=== PATIENT | female | born 2000 | race Caucasian/White ===

== ENCOUNTER 2020-02-29 22:56 | Emergency (ER) | payer BC ==
[~2020-02-29] VITALS: Ht 154.9 cm; Wt 63.5 kg
--- NOTE | ~2020-02-29 | EMS ---
[facility] [address] [place] [address] EMS Patient Care Report Name: ELSIE JERNIGAN Room #: PRE M.R.#: [id number] Admission: Attend Phys: Discharge: Date of : 99 Report #: [id number] THIS REPORT FOR: //name// Report Transmitted: 02/29/2020 22:58 EMS Care Summary [place], [place]/[facility] Incident [id number] @ 02/29/2020 22:18 Incident Location [address] [place] [id number] Patient ELSIE JERNIGAN Female, 19 Years 2000 Patient Address Patient History Hypertension (HTN), Patient Allergies No known allergies, Patient Medications None Reported, Chief Complaint PAIN ALL OVER BODY Disposition Transported No Lights/[place] Dispatch Reason Breathing Problem Transported To [facility] Narrative RESPONDED TO BREATHING PROBLEMS AT APARTMENT. UPON ARRIVAL PT FOUND SITTING ON FLOOR LEANING OVER TOILET. PT REPORTS FEELING SICK AND HAVING PAINS ALL OVER HER BODY. PT IS SWEATY TO THE TOUCH. PT REPORTS SHARP PAIN UPON TAKING DEEP BREATHS AND SAYS IT HAS BEEN HAPPENING FOR THE LAST 10 MINUTES. PT REPORTS SOA AND CHEST PAIN WHEN BREATHING. PT DOES NOT APPEAR IN RESPIRATORY DISTRESS. PT [facility] [address] [place] [address] EMS Patient Care Report Name: ELSIE JERNIGAN Room #: PRE [place]#: [id number] Admission: Attend Phys: Discharge: Date of : 99 Report #: [id number] DENIES BEING TESTED FOR COVID. PT HX OF HTN AND RECENT CHILD OF ONE MONTH AGO. PT AMBULATED TO COT OUTSIDE. VITALS AND 3 LEAD OBTAINED. PT TRANSPORTED TO [facility] WITH NO CHANGE IN CONDITION. PT SCOOTED TO BED AND HANDRAILS UP. REPORT GIVEN TO NURSE. Initial Vitals @22:34P: 71, @22:45P: 96, @22:48P: 81,BP: 154/100, @22:34P: 91,R: 20,BP: 149/99,Pain: 10/10,GCS: 15,SpO2: 98,Revised Trauma: 12, @22:42P: 86,R: 20,BP: 133/82,SpO2: 98, Assessments @22:33MENTAL:Time Oriented,Person Oriented,Event Oriented,Place Oriented,SKIN:Diaphoresis,HEENT:Head/Face: No Abnormalities,Eyes: No Abnormalities,Neck/Airway: No Abnormalities,LUNG SOUNDS:General: Nausea,Left Upper: No Abnormalities,Right Upper: No Abnormalities,Left Lower: No Abnormalities,Right Lower: No Abnormalities,ABDOMEN:General: Nausea,Left Upper: No Abnormalities,Right Upper: No Abnormalities,Left Lower: No Abnormalities,Right Lower: No Abnormalities,PELVIS//GI:No Abnormalities,EXTREMITIES:Left Arm: No Abnormalities,Right Arm: No Abnormalities,Left Leg: No Abnormalities,Right Leg: No Abnormalities,PULSE:NEURO:No Abnormalities,@22:40MENTAL:No Abnormalities,SKIN:Diaphoresis,HEENT:Head/Face: No Abnormalities,Eyes: No Abnormalities,Neck/Airway: No Abnormalities,LUNG SOUNDS:General: No Abnormalities,Left Upper: No Abnormalities,Right Upper: No Abnormalities,Left Lower: No Abnormalities,Right Lower: No Abnormalities,ABDOMEN:General: No Abnormalities,Left Upper: No Abnormalities,Right Upper: No Abnormalities,Left Lower: No Abnormalities,Right Lower: No Abnormalities,PELVIS//GI:No Abnormalities,EXTREMITIES:Left Arm: No Abnormalities,Right Arm: No Abnormalities,Left Leg: No Abnormalities,Right Leg: No Abnormalities,PULSE:NEURO:No Abnormalities, Impression Acute Pain, not elsewhere classified Procedures @22:33ALS AssessmentResponse: UnchangedSucceeded@22:533-Lead ECGResponse: UnchangedSucceeded Timeline 22:17,Call Received 22:17,Dispatch Notified 22:18,Dispatched 22:19,En Route 22:29,On Scene [address] [address] EMS Patient Care Report Name: ELSIE JERNIGAN Room #: PRE M.R.#: [id number] Admission: Attend Phys: Discharge: Date of : [birth year] Report #: [id number] 22:33,At Patient 22:33,ALS Assessment,Response: UnchangedSucceeded, 22:34,BP: / M,PULSE: 71,RR: R,SPO2: Ox,ETCO2: ,BG: ,PAIN: ,GCS: , 22:34,BP: 149/99 M,PULSE: 91,RR: 20 R,SPO2: 98 Ox,ETCO2: ,BG: ,PAIN: 10,GCS: 15, 22:42,BP: 133/82 M,PULSE: 86,RR: 20 R,SPO2: 98 Ox,ETCO2: ,BG: ,PAIN: ,GCS: , 22:43,Depart Scene 22:45,BP: / M,PULSE: 96,RR: R,SPO2: Ox,ETCO2: ,BG: ,PAIN: ,GCS: , 22:48,BP: 154/100 M,PULSE: 81,RR: R,SPO2: Ox,ETCO2: ,BG: ,PAIN: ,GCS: , 22:53,3-Lead ECG,Response: UnchangedSucceeded, 22:54,At Destination 23:05,Call Closed Disclaimer v1.1 Copyright 2020 [employer] This EMS Care Summary contains data elements from the applicable legal record (which may be displayed differently). It is designed to provide pertinent information for the following purposes: continuity of care, clinical quality, and state data reporting. The complete legal record is available to ED staff and administrators of the receiving hospital in [employer] Patient Tracker. All data is provided "as is."
[2020-02-29] MEDS ORDERED: ZOLOFT100 MG PO (23:03)
[2020-02-29 23:35] LABS: BASOPHILS 0.2 % (0.0-2.0); EOSINOPHILS 1.5 % (0.0-3.0); HEMATOCRIT 42.8 % (37.0-47.0); HEMOGLOBIN 14.1 gm/dL (12.0-15.0); MCH 28.8 pg (26.0-34.0); MCV 87.2 fL (80.0-100.0); MONOCYTES 6.3 % (1.0-8.0); PLATELET COUNT 302 thou/uL (150-400); RBC 4.91 mil/uL (4.20-5.00); RDW 14.8 % (10.5-14.5); WBC 6.5 thou/uL (4.0-11.0)
[2020-02-29 23:38] LABS: CALCIUM 8.7 mg/dL (8.5-10.1); CREATININE 0.9 mg/dL (0.6-1.0); POTASSIUM 3.3 mmol/L (3.5-5.1)
[2020-02-29 23:44] LABS: ALBUMIN 3.9 g/dL (3.4-5.0); TOTAL BILIRUBIN 0.4 mg/dL (0.2-1.0); TOTAL PROTEIN 7.6 g/dL (6.4-8.2)
[2020-03-01] MEDS ORDERED: PEPCID20 MG PO (00:01)
[2020-03-01 00:18] VITALS: BP 106/75
--- NOTE | 2020-03-02 07:59 | EKG ---
[facility] [place] [address] [place] [address] ELECTROCARDIOGRAM REPORT Name: CHIDI JERNIGAN Room #: [facility]#: [id number] Admission: 02/29/20 Attend Phys: Discharge: 03/01/20 Date of : [birth year] Report #: [id number] THIS REPORT FOR: cc: DEVANTE - Yanira family physician/PCP DEVANTE - Yanira family physician/PCP Darien Asif MD [facility] THIS REPORT FOR: //name// [facility] ED Test Date: 2020-02-29 Test Time: 22:59:45 Pat Name: CHIDI JERNIGAN Department: Room: Gender: F Event Host: : 2000 Requested By: Bobby Ely Order Number: [id number] MD: Darien Asif Measurements Intervals [place] Rate: 71 P: 28 WA: 127 QRS: 44 QRSD: 104 T: 20 QT: 392 QTc: 426 Interpretive Statements Sinus rhythm Borderline T abnormalities, anterior leads No previous ECG available for comparison Electronically Signed On 03-02-2020 7:59:37 CDT by Darien Asif [email or web address] <ELECTRONICALLY SIGNED> By: Darien Asif MD, FAC 03/02/20 0759 [id number] Darien Asif MD, [facility] /EPI
== END 2020-03-01 00:30 | disposition home or self-care (01) ==
LOC: ER 22:56
PROVIDERS: Emergency Medicine
DX: R10.13 Epigastric pain (principal); R11.0 Nausea; Z79.899 Other long term (current) drug therapy

== ENCOUNTER 2020-04-23 06:41 | Emergency (ER) | payer BC ==
[~2020-04-23] VITALS: Ht 154.9 cm; Wt 65.8 kg
[~2020-04-23 06:41] MED LIST: PEPCID20 MG PO; ZOLOFT100 MG PO
[2020-04-23 07:26] LABS: URINE BILIRUBIN NEGATIVE (Negative); URINE BLOOD NEGATIVE (Negative); URINE CLARITY CLEAR; URINE COLOR YELLOW; URINE GLUCOSE-RANDOM* NEGATIVE (Negative); URINE KETONES NEGATIVE (Negative); URINE LEUKOCYTES-REFLEX NEGATIVE (Negative); URINE NITRITE-REFLEX NEGATIVE (Negative); URINE PROTEIN (DIPSTICK) NEGATIVE (Negative); URINE SPECIFIC GRAVITY >= 1.030 (1.005-1.035); URINE UROBILINOGEN 0.2 E.U./dl (0.2-1.0)
--- NOTE | 2020-04-23 07:53 | EKG ---
[facility] [place] [address] ELECTROCARDIOGRAM REPORT Name: CHIDI JERNIGAN Room #: PRE M.R.#: [id number] Admission: Attend Phys: Discharge: Date of : 99 Report #: [id number] THIS REPORT FOR: cc: DEVANTE - Yanira family physician/PCP FAM - No family physician/PCP Darien Asif MD [facility] ~ THIS REPORT FOR: //name// [facility] ED Test Date: 2020-04-23 Test Time: 07:44:24 Pat Name: CHIDI JERNIGAN Department: Room: Gender: F Manager Placement: : 2000 Requested By: Alfa Temple Order Number: [id number] MD: Darien Asif Measurements Intervals [place] Rate: 66 P: 16 DE: 132 QRS: 7 QRSD: 109 T: -14 QT: 408 QTc: 428 Interpretive Statements Sinus rhythm Nonspecific T wave abnormality Compared to ECG 02/29/2020 22:59:45 No significant change was found Electronically Signed On 04-23-2020 7:53:21 CDT by Darien Asif [email or web address] <ELECTRONICALLY SIGNED> By: Darien Asif MD, FACC 04/23/20 0753 Darien Asif MD, [facility] /EPI
[2020-04-23 08:06] LABS: ABSOLUTE NEUTROPHILS 6.6 thou/uL (1.4-8.2); BASOPHILS 0.3 % (0.0-2.0); EOSINOPHILS 0.9 % (0.0-3.0); HEMATOCRIT 40.3 % (37.0-47.0); HEMOGLOBIN 13.4 gm/dL (12.0-15.0); LYMPHOCYTES 20.1 % (24.0-44.0); MCH 28.2 pg (26.0-34.0); MCHC 33.2 g/dL (28.0-37.0); MONOCYTES 6.7 % (1.0-8.0); PLATELET COUNT 249 thou/uL (150-400); RBC 4.75 mil/uL (4.20-5.00); WBC 9.2 thou/uL (4.0-11.0)
[2020-04-23 08:35] LABS: CALCIUM 9.4 mg/dL (8.5-10.1); CREATININE 0.6 mg/dL (0.6-1.0); POTASSIUM 3.7 mmol/L (3.5-5.1)
[2020-04-23 08:42] LABS: ALBUMIN 4.3 g/dL (3.4-5.0); TOTAL BILIRUBIN 0.7 mg/dL (0.2-1.0); TOTAL PROTEIN 7.8 g/dL (6.4-8.2)
[2020-04-23] MEDS ORDERED: NORCO 5-325 TA1 EAC2 PO (16:01)
[2020-04-23] MEDS ORDERED: ZOFRAN ODT4 MG PO (16:01)
[2020-04-23 16:20] VITALS: BP 123/73
== END 2020-04-23 16:20 | disposition home or self-care (01) ==
LOC: ER 06:41
PROVIDERS: Emergency Medicine
DX: K80.20 Calculus of gallbladder without cholecystitis without obstruction (principal)

== ENCOUNTER → 2020-05-15 | Outpatient (CLI) | payer BC ==
[~2020-05-15] MED LIST changes: +NORCO 5-325 TA1 EAC2 PO; +ZOFRAN ODT4 MG PO
== END ==
LOC: LAB 11:41
PROVIDERS: ATTEND Surgery
DX: Z01.812 Encounter for preprocedural laboratory examination (principal); Z20.828 Contact with and (suspected) exposure to other viral communicable diseases

== ENCOUNTER → 2020-05-18 | Day surgery (SDC) | payer BC ==
[~2020-05-18] VITALS: Ht 154.9 cm; Wt 64.4 kg
[~2020-05-18] MED LIST changes: +NORCO 10-325 T1 EACH PO
--- NOTE | ~2020-05-18 | O ---
[facility] [place] [address] OPERATIVE REPORT Name: CHIDI JERNIGAN Room #: [facility].#: [id number] Admission: 05/18/20 Attend Phys: Juvencio Quintero, Discharge: Date of : [birth year] Report #: [id number] THIS REPORT FOR: cc: DEVANTE - Yanira family physician/PCP DEVANTE - Yanira family physician/PCP Juvencio Quintero MD ~ CC: [facility] physician/PCP Juvencio Quintero DATE OF SERVICE: 05/18/2020 PREOPERATIVE DIAGNOSIS: Symptomatic cholelithiasis. POSTOPERATIVE DIAGNOSIS: Symptomatic cholelithiasis. OPERATION: Laparoscopic cholecystectomy. SURGEON: Juvencio Quintero MD ANESTHESIA: General. ESTIMATED BLOOD LOSS: Minimal. SPECIMEN: Gallbladder. DESCRIPTION OF PROCEDURE: After informed consent was obtained, the patient was brought to the operating room and placed supine. SCDs were placed and working, preoperative antibiotics were administered, general anesthesia was induced. The abdomen was prepped and draped in the usual sterile fashion. A 10 mm incision was made below the umbilicus. Fascia was incised and a trocar was placed. Pneumoperitoneum was established. Three right upper quadrant 5 mm ports were placed. Gallbladder was grasped at the fundus and retracted cephalad. Infundibulum was grasped and retracted laterally. I dissected out the cystic duct and cystic artery. Cystic duct and artery were clipped and ligated leaving 2 clips on the remaining duct and one on the remaining artery. Gallbladder was then taken off the liver bed with electrocautery. It was placed into an Endopouch and removed. The fascia was closed with a fbveli-nz-uffny 0 Vicryl. Skin was closed with 4-0 Monocryl. Incisions were sealed with Steri-Strips. COMPLICATIONS: None. DISPOSITION: The patient was taken to recovery in satisfactory condition. By: 0927 0936 Juvencio Quintero MD /nt
[2020-05-18 07:45] VITALS: BP 124/77
[2020-05-18 08:59] VITALS: BP 124/77
--- NOTE | 2020-05-21 17:06 | PATH ---
[facility] [address] [place] [address] PATHOLOGY RPT PROCEDURE Name: CHIDI JERNIGAN Room #: REG [facility] M.R.#: [id number] Admission: 05/18/20 Date of : 99 Discharge: Report #: [id number] Path Case #: [id number] [facility] Accession Number: [id number] . 01 Material submitted: . gallbladder - GALLBLADDER . 01 Clinical history: . CALCULUS OF GALLBLADDER . 02 Diagnosis: Gallbladder, cholecystectomy: - Mild chronic cholecystitis. - Cholelithiasis. - Incidental lymph node at cyst duct margin. (IUV:pit 05/21/2020) QTP 05/21/2020 1303 Local . 02 Electronically signed: . Anu Bai MD, Pathologist NPI- [id number] . 01 Gross description: . Received in formalin labeled "Oathout, Chidi, gallbladder" is an intact cholecystectomy specimen measuring 4.5 x 2.1 x 1.7 cm. The serosa is pink-rodriguez and smooth and the specimen is opened to reveal dark green velvety mucosa without polyps or masses. The average wall thickness is 0.3 cm. Multiple yellow-green bosselated calculi are present within the gallbladder measuring in aggregate 2.5 x 1.8 x 0.4 cm and ranging from 0.1-0.4 cm in greatest dimension. Clerical Adviser sections of the fundus and body and the cystic duct margin are submitted in A1. ([facility]; 05/20/2020) [facility] 05/20/2020 1021 Local . 02 Pathologist provided ICD-10: K80.10 . 02 CPT . [id number] Specimen Comment: A courtesy copy of this report has been sent to [phone] Specimen Comment: Report sent to Performed at: [address] [id number] MD Ruel Perez MD Phone: [phone] Performed at: [address] [id number] [address] [address] PATHOLOGY RPT PROCEDURE Name: CHIDI JERNIGAN Room #: REG [facility]#: [id number] Admission: 05/18/20 Date of : [birth year] Discharge: Report #: [id number] Path Case #: [id number] MD Anu Bai MD Phone: [phone]
== END | disposition home or self-care (01) ==
LOC: OR 06:11
PROVIDERS: ATTEND Surgery
DX: K80.10 Calculus of gallbladder with chronic cholecystitis without obstruction (principal); F41.9 Anxiety disorder, unspecified; I10 Essential (primary) hypertension; Z79.899 Other long term (current) drug therapy; Z98.890 Other specified postprocedural states; Z88.8 Allergy status to other drugs, medicaments and biological substances
CPT/HCPCS: 50010; 50101; 50411; 50555; 51489; 52265; 52266; 53307; 53312; 53314; 55245; 56462; 56525; 56526; 62110; 62900; 70005